=== PATIENT | male | born 1970 | race African-American/Black ===

== ENCOUNTER 2018-11-08 12:59 | Inpatient (IN) | payer OTHER ==
[2018-11-08 13:19] LABS: ADD MAN DIFF? NO
[2018-11-08] MEDS: SODIUM CHLORIDE 0.9% 1L BAG IV* (13:27)
[2018-11-08 13:28] LABS: BASOPHILS % 0.2 % (0.0-2.0); EOSINOPHILS % 0.3 % (0.0-7.0); HEMATOCRIT 31.3 % (42.0-52.0); HEMOGLOBIN 10.1 g/dl (14.0-18.0); LYMPHOCYTES # 1.6 10^3/ul (0.8-2.9); LYMPHOCYTES % 11.6 % (15.0-51.0); MEAN CORPUSCULAR HEMOGLOBIN 26.2 pg (29.0-33.0); MEAN CORPUSCULAR HGB CONC 32.3 g/dl (32.0-37.0); MEAN CORPUSCULAR VOLUME 81.3 fl (82.0-101.0); MEAN PLATELET VOLUME 9.3 fl (7.4-10.4); MONOCYTE # 0.9 10^3/ul (0.3-0.9); MONOCYTES % 6.1 % (0.0-11.0); NEUTROPHIL # 11.3 10^3/ul (1.6-7.5); NEUTROPHILS % 80.7 % (39.0-77.0); PLATELET COUNT 288 10^3/UL (140-415); RED BLOOD COUNT 3.85 10^6/ul (4.70-6.10); RED CELL DISTRIBUTION WIDTH 12.6 % (11.5-14.5)
[2018-11-08] MEDS: PIPER-TAZO 3.375 GM IV (PMX) 100 ML IVPB ×2 (13:34→18:03)
[2018-11-08 13:44] LABS: ALANINE AMINOTRANSFERASE 17 IU/L (13-69); ALBUMIN 3.3 g/dl (3.3-4.9); ALBUMIN/GLOBULIN RATIO 0.84; ALKALINE PHOSPHATASE 129 IU/L (42-121); ANION GAP 9 (5-13); ASPARTATE AMINO TRANSFERASE 18 IU/L (15-46); BILIRUBIN,INDIRECT 0.8 mg/dl (0-1.1); BILIRUBIN,TOTAL 0.8 mg/dl (0.2-1.3); BLOOD UREA NITROGEN 18 mg/dl (7-20); CALCIUM 9.2 mg/dl (8.4-10.2); CARBON DIOXIDE 30 mmol/L (21-31); CHLORIDE 96 mmol/L (97-110); Estimated GFR > 60 mL/min (>60); GLUCOSE 269 mg/dl (70-220); POTASSIUM 4.8 mmol/L (3.5-5.1); SODIUM 135 mmol/L (135-144); TOTAL PROTEIN 7.2 g/dl (6.1-8.1)
[2018-11-08 13:55] LABS: INR 1.07; PT RATIO 1.1
[2018-11-08 13:56] LABS: PARTIAL THROMBOPLASTIN TIME 36.9 Sec (23.0-35.0); TROPONIN-I < 0.012 ng/ml (0.000-0.120)
[2018-11-08] MEDS ORDERED: ONDANSETRON 4 MG INJ IV ×2 (14:00→14:30)
[2018-11-08] MEDS ORDERED: ACETAMINOPHEN 325 MG TAB PO (14:00)
[2018-11-08] MEDS: VANCOMYCIN 1 GM (PMX) 250 ML IVPB (14:17)
[2018-11-08] MEDS ORDERED: HYDROCODONE/APAP (5/325) TAB PO (14:30)
[2018-11-08] MEDS ORDERED: VANCOMYCIN IV PER PHARMACY XX (14:30)
[2018-11-08] MEDS ORDERED: NACL 0.9% 3 ML SYG IV (14:30)
[2018-11-08] MEDS ORDERED: LIDOCAINE 1% (MPF) 30 ML INJ INJ (16:30)
[2018-11-08] MEDS: SOD CHLORIDE 0.9% 1,000 ML IV (18:03)
[2018-11-08] MEDS: INSULIN ASPART [NOVOLOG] 3 ML PEN SC ×3 (18:06→23:00)
[2018-11-08 20:32] LABS: LACTIC ACID 2.3 mmol/L (0.5-2.0)
[2018-11-08 20:47] LABS: C-REACTIVE PROTEIN 21.9 mg/dl (0.0-0.9)
[2018-11-08] MEDS: ACETAMINOPHEN 325 MG TAB PO (20:47)
[2018-11-08] MEDS: VANCOMYCIN 1 GM 250 ML IVPB (20:50)
[2018-11-08 21:06] LABS: ERYTHROCYTE SEDIMENTATION RATE 102 mm/Hr (0-20)
[2018-11-08 21:11] LABS: PROCALCITONIN 0.98 ng/mL (0.00-0.10)
[2018-11-08] MEDS: GABAPENTIN 300 MG CAP PO (22:59)
[2018-11-08] MEDS: INSULIN GLARGINE [LANTus] (100 UNITS/ML) SYG SC (22:59)
[2018-11-09] MEDS: PIPER-TAZO 3.375 GM IV (PMX) 100 ML IVPB ×4 (01:07→17:36)
[2018-11-09] MEDS: ACCU-CHEK XX (02:00)
[2018-11-09 03:10] LABS: LACTIC ACID 1.3 mmol/L (0.5-2.0)
[2018-11-09 05:46] LABS: ADD MAN DIFF? NO
[2018-11-09 05:50] LABS: BASOPHILS % 0.3 % (0.0-2.0); EOSINOPHILS # 0.1 10^3/ul (0.0-0.5); EOSINOPHILS % 0.9 % (0.0-7.0); HEMATOCRIT 28.8 % (42.0-52.0); HEMOGLOBIN 9.3 g/dl (14.0-18.0); LYMPHOCYTES % 17.2 % (15.0-51.0); MEAN CORPUSCULAR HEMOGLOBIN 25.8 pg (29.0-33.0); MEAN CORPUSCULAR HGB CONC 32.3 g/dl (32.0-37.0); MEAN PLATELET VOLUME 9.9 fl (7.4-10.4); NEUTROPHIL # 8.6 10^3/ul (1.6-7.5); NEUTROPHILS % 72.2 % (39.0-77.0); PLATELET COUNT 287 10^3/UL (140-415); RED CELL DISTRIBUTION WIDTH 12.7 % (11.5-14.5)
[2018-11-09 05:50] LABS: WHITE BLOOD COUNT 11.9 10^3/ul (4.8-10.8)
[2018-11-09 06:53] LABS: ALANINE AMINOTRANSFERASE 21 IU/L (13-69); ALBUMIN 3.2 g/dl (3.3-4.9); ALBUMIN/GLOBULIN RATIO 0.84; ALKALINE PHOSPHATASE 145 IU/L (42-121); ANION GAP 9 (5-13); ASPARTATE AMINO TRANSFERASE 33 IU/L (15-46); BILIRUBIN,INDIRECT 0.7 mg/dl (0-1.1); BILIRUBIN,TOTAL 0.7 mg/dl (0.2-1.3); BLOOD UREA NITROGEN 16 mg/dl (7-20); CALCIUM 8.9 mg/dl (8.4-10.2); CARBON DIOXIDE 28 mmol/L (21-31); CHLORIDE 100 mmol/L (97-110); CHOL/HDL RATIO 3.8 RATIO; CHOLESTEROL 107 mg/dl (100-200); CREATININE 1.01 mg/dl (0.61-1.24); Estimated GFR > 60 mL/min (>60); GLUCOSE 184 mg/dl (70-220); HDL CHOLESTEROL 28 mg/dl (28-71); LDL CHOLESTEROL,CALCULATED 61 mg/dl; MAGNESIUM 1.8 mg/dl (1.7-2.5); POTASSIUM 4.7 mmol/L (3.5-5.1); SODIUM 137 mmol/L (135-144); TRIGLYCERIDES 90 mg/dl (0-149)
[2018-11-09 07:25] LABS: HEMOGLOBIN A1C 12.6 % (0-5.9)
[2018-11-09] MEDS: VANCOMYCIN 1 GM 250 ML IVPB ×2 (08:11→21:32)
[2018-11-09] MEDS: ZINC SULFATE 220 MG CAP PO (08:13)
[2018-11-09] MEDS: GABAPENTIN 300 MG CAP PO ×3 (08:13→21:31)
[2018-11-09] MEDS: ASCORBIC ACID 500 MG TAB PO (08:13)
[2018-11-09] MEDS: LISINOPRIL 5 MG TAB PO (08:14)
[2018-11-09] MEDS: SERTRALINE 50 MG TAB PO (08:14)
[2018-11-09] MEDS: COLLAGENASE 5 GM (UD JAR) TOP (08:20)
[2018-11-09] MEDS: ACETAMINOPHEN 325 MG TAB PO ×2 (08:20→17:36)
[2018-11-09] MEDS: INSULIN ASPART [NOVOLOG] 3 ML PEN SC ×7 (08:24→21:00)
[2018-11-09] MEDS ORDERED: GLUCOSE GEL 15 GRAM TUBE BUCCAL (08:30)
[2018-11-09] MEDS ORDERED: GLUCOSE GEL 15 GRAM TUBE PO ×2 (08:30)
[2018-11-09] MEDS ORDERED: DEXTROSE 50% 50 ML SYRINGE IV ×2 (08:30)
[2018-11-09] MEDS ORDERED: GLUCAGON 1 MG INJ IM (08:30)
[2018-11-09 10:39] LABS: C-REACTIVE PROTEIN 24.3 mg/dl (0.0-0.9)
[2018-11-09 10:56] LABS: PROCALCITONIN 1.14 ng/mL (0.00-0.10)
[2018-11-09 11:21] LABS: ERYTHROCYTE SEDIMENTATION RATE 100 mm/Hr (0-20)
[2018-11-09] MEDS: DAKINS 0.0125%(1/40) 473 ML SOLUTION TP (12:28)
[2018-11-09] MEDS: INSULIN GLARGINE [LANTus] (100 UNITS/ML) SYG SC (21:31)
[2018-11-09 22:39] LABS: ADD UMIC YES; UR ASCORBIC ACID NEGATIVE (NEGATIVE); UR BILIRUBIN (Dip) NEGATIVE (NEGATIVE); UR BLOOD (Dip) NEGATIVE (NEGATIVE); UR CLARITY CLEAR (CLEAR); UR COLOR YELLOW (YELLOW); UR GLUCOSE (Dip) 3+ mg/dL (NEGATIVE); UR KETONES (Dip) NEGATIVE (NEGATIVE); UR LEUKOCYTE ESTERASE (Dip) NEGATIVE Leu/ul (NEGATIVE); UR NITRITE (Dip) NEGATIVE (NEGATIVE); UR RBC 7 /HPF (0-5); UR SPECIFIC GRAVITY (Dip) 1.009 (1.003-1.030); UR TOTAL PROTEIN (Dip) 2+ mg/dl (NEGATIVE); UR UROBILINOGEN (Dip) NEGATIVE (NEGATIVE); UR WBC 0 /HPF (0-5)
[2018-11-10] MEDS: PIPER-TAZO 3.375 GM IV (PMX) 100 ML IVPB ×4 (00:28→20:12)
[2018-11-10] MEDS: ACCU-CHEK XX (01:38)
[2018-11-10] MEDS: morphine 2 MG INJ IV ×2 (05:48→22:42)
[2018-11-10] MEDS: INSULIN ASPART [NOVOLOG] 3 ML PEN SC ×7 (08:00→22:36)
[2018-11-10] MEDS: DEXTROSE 5%-0.45% NACL 1,000 ML IV ×2 (08:06→16:30)
[2018-11-10] MEDS: ZINC SULFATE 220 MG CAP PO (08:08)
[2018-11-10] MEDS: SERTRALINE 50 MG TAB PO (08:08)
[2018-11-10] MEDS: GABAPENTIN 300 MG CAP PO ×3 (08:08→22:37)
[2018-11-10] MEDS: ASCORBIC ACID 500 MG TAB PO (08:08)
[2018-11-10] MEDS: LISINOPRIL 5 MG TAB PO (08:11)
[2018-11-10] MEDS: COLLAGENASE 5 GM (UD JAR) TOP (08:12)
[2018-11-10] MEDS: DAKINS 0.0125%(1/40) 473 ML SOLUTION TP (08:12)
[2018-11-10 08:46] LABS: C-REACTIVE PROTEIN 20.6 mg/dl (0.0-0.9)
[2018-11-10] MEDS: VANCOMYCIN 1 GM 250 ML IVPB ×2 (08:58→22:37)
[2018-11-10 09:21] LABS: ERYTHROCYTE SEDIMENTATION RATE 111 mm/Hr (0-20)
[2018-11-10 10:43] LABS: PROCALCITONIN 0.97 ng/mL (0.00-0.10)
[2018-11-10] MEDS ORDERED: HYDROmorphONE 1 MG/5 ML IV SYRINGE IV ×3 (14:00)
[2018-11-10] MEDS ORDERED: PROCHLORPERAZINE 10 MG INJ IV (14:00)
[2018-11-10] MEDS ORDERED: MEPERIDINE 25 MG INJ IV (14:00)
[2018-11-10] MEDS ORDERED: ONDANSETRON 4 MG INJ IV (14:00)
[2018-11-10] MEDS ORDERED: FENTAnyl 50 MCG/ML VIAL IV (14:00)
[2018-11-10] MEDS ORDERED: DIPHENHYDRAMINE 50 MG INJ IV (14:00)
[2018-11-10] MEDS ORDERED: POLYMYXIN/BACITRACIN 1L IRRIG (14:02)
[2018-11-10] MEDS ORDERED: MIDAZOLAM 1 MG/ML 2 ML INJ (14:10)
[2018-11-10] MEDS ORDERED: LIDOCAINE 2% (SDV) 5 ML INJ (14:27)
[2018-11-10] MEDS ORDERED: PROPOFOL 20 ML (14:27)
[2018-11-10] MEDS ORDERED: FENTAnyl 50 MCG/ML VIAL (14:27)
[2018-11-10] MEDS ORDERED: EPHEDrine 25 MG/5 ML SYG (14:28)
[2018-11-10] MEDS ORDERED: FAMOTIDINE 20 MG INJ (14:28)
[2018-11-10] MEDS ORDERED: ONDANSETRON 4 MG INJ (14:29)
[2018-11-10] MEDS: BACITRACIN 50000 UNITS INJ (14:58)
[2018-11-10] MEDS: VANCOMYCIN 1 GM INJ (14:59)
[2018-11-10] MEDS: POLYMYXIN B 500000 UNIT INJ (14:59)
[2018-11-10] MEDS: LIDOCAINE 1% (MPF) 30 ML INJ (15:00)
[2018-11-10] MEDS: INSULIN GLARGINE [LANTus] (100 UNITS/ML) SYG SC (22:36)
[2018-11-11] MEDS: PIPER-TAZO 3.375 GM IV (PMX) 100 ML IVPB ×5 (01:08→23:55)
[2018-11-11] MEDS: INSULIN ASPART [NOVOLOG] 3 ML PEN SC ×9 (01:45→20:35)
[2018-11-11] MEDS: DEXTROSE 5%-0.45% NACL 1,000 ML IV ×4 (02:30→22:30)
[2018-11-11 06:09] LABS: WHITE BLOOD COUNT 11.3 10^3/ul (4.8-10.8)
[2018-11-11 06:09] LABS: HEMATOCRIT 22.5 % (42.0-52.0); HEMOGLOBIN 7.2 g/dl (14.0-18.0); MEAN CORPUSCULAR HEMOGLOBIN 25.8 pg (29.0-33.0); MEAN CORPUSCULAR VOLUME 80.6 fl (82.0-101.0); MEAN PLATELET VOLUME 9.5 fl (7.4-10.4); PLATELET COUNT 289 10^3/UL (140-415); POSITIVE DIFF @See below; RED BLOOD COUNT 2.79 10^6/ul (4.70-6.10); RED CELL DISTRIBUTION WIDTH 12.8 % (11.5-14.5)
[2018-11-11 06:30] LABS: ADD MAN DIFF? YES
[2018-11-11 07:20] LABS: ANION GAP 5 (5-13); BLOOD UREA NITROGEN 11 mg/dl (7-20); CALCIUM 8.2 mg/dl (8.4-10.2); CARBON DIOXIDE 26 mmol/L (21-31); CHLORIDE 107 mmol/L (97-110); CREATININE 1.14 mg/dl (0.61-1.24); Estimated GFR > 60 mL/min (>60); GLUCOSE 166 mg/dl (70-220); MAGNESIUM 1.9 mg/dl (1.7-2.5); PHOSPHORUS 3.3 mg/dl (2.5-4.9); POTASSIUM 4.3 mmol/L (3.5-5.1); SODIUM 138 mmol/L (135-144)
[2018-11-11 07:30] LABS: ERYTHROCYTE SEDIMENTATION RATE 123 mm/Hr (0-20)
[2018-11-11 07:33] LABS: PROCALCITONIN 0.58 ng/mL (0.00-0.10)
[2018-11-11 07:37] LABS: C-REACTIVE PROTEIN 15.7 mg/dl (0.0-0.9)
[2018-11-11] MEDS: morphine 2 MG INJ IV ×2 (07:42→20:51)
[2018-11-11] MEDS: DAKINS 0.0125%(1/40) 473 ML SOLUTION TP (08:12)
[2018-11-11] MEDS: COLLAGENASE 5 GM (UD JAR) TOP (08:12)
[2018-11-11] MEDS: VANCOMYCIN 1 GM 250 ML IVPB ×2 (09:42→20:33)
[2018-11-11] MEDS: ASCORBIC ACID 500 MG TAB PO (09:43)
[2018-11-11] MEDS: LISINOPRIL 5 MG TAB PO (09:43)
[2018-11-11] MEDS: GABAPENTIN 300 MG CAP PO ×3 (09:43→20:34)
[2018-11-11] MEDS: ZINC SULFATE 220 MG CAP PO (09:43)
[2018-11-11] MEDS: SERTRALINE 50 MG TAB PO (09:43)
[2018-11-11 10:01] LABS: ANISOCYTOSIS 1+ (0-0); BAND NEUTROPHILS #M 1.2 10^3/ul (0.0-0.6); BAND NEUTROPHILS % (M) 11 % (0-4); BURR CELLS 2+ (0-0); EOSINOPHILS % (M) 1 % (0-7); GIANT THROMBO% (M) 2 % (0-0); LYMPHOCYTES #M 2.1 10^3/ul (0.8-2.9); LYMPHOCYTES % (M) 19 % (15-51); MONOCYTE #M 0.5 10^3/ul (0.3-0.9); MONOCYTES % (M) 5 % (0-11); OVALOCYTES 1+ (0-0); PLATELET ESTIMATE NORMAL; POIKILOCYTOSIS 3+ (0-0); POLYCHROMASIA 3+ (0-0); SEG NEUT #M 7.4 10^3/ul (1.6-7.5); SEGMENTED NEUTROPHILS (M) % 64 % (39-77); SMUDGE%M 4 % (0-0)
[2018-11-11] MEDS: INSULIN GLARGINE [LANTus] (100 UNITS/ML) SYG SC (20:36)
[2018-11-12] MEDS: INSULIN ASPART [NOVOLOG] 3 ML PEN SC ×9 (01:14→20:36)
[2018-11-12] MEDS: DEXTROSE 5%-0.45% NACL 1,000 ML IV ×2 (03:58→08:21)
[2018-11-12] MEDS: PIPER-TAZO 3.375 GM IV (PMX) 100 ML IVPB ×3 (05:45→17:09)
[2018-11-12 05:58] LABS: ADD MAN DIFF? NO
[2018-11-12 06:31] LABS: BASOPHILS % 0.3 % (0.0-2.0); EOSINOPHILS # 0.3 10^3/ul (0.0-0.5); EOSINOPHILS % 3.2 % (0.0-7.0); HEMATOCRIT 23.7 % (42.0-52.0); HEMOGLOBIN 7.4 g/dl (14.0-18.0); LYMPHOCYTES # 2.7 10^3/ul (0.8-2.9); LYMPHOCYTES % 25.9 % (15.0-51.0); MEAN CORPUSCULAR HEMOGLOBIN 25.5 pg (29.0-33.0); MEAN CORPUSCULAR HGB CONC 31.2 g/dl (32.0-37.0); MEAN CORPUSCULAR VOLUME 81.7 fl (82.0-101.0); MEAN PLATELET VOLUME 9.6 fl (7.4-10.4); MONOCYTE # 0.6 10^3/ul (0.3-0.9); MONOCYTES % 5.8 % (0.0-11.0); NEUTROPHIL # 6.5 10^3/ul (1.6-7.5); NEUTROPHILS % 63.6 % (39.0-77.0); PLATELET COUNT 357 10^3/UL (140-415); RED CELL DISTRIBUTION WIDTH 13.2 % (11.5-14.5)
[2018-11-12 06:31] LABS: WHITE BLOOD COUNT 10.3 10^3/ul (4.8-10.8)
[2018-11-12 06:36] LABS: ANION GAP 6 (5-13); BLOOD UREA NITROGEN 9 mg/dl (7-20); CALCIUM 8.7 mg/dl (8.4-10.2); CARBON DIOXIDE 27 mmol/L (21-31); CHLORIDE 108 mmol/L (97-110); CREATININE 1.22 mg/dl (0.61-1.24); Estimated GFR > 60 mL/min (>60); GLUCOSE 182 mg/dl (70-220); PHOSPHORUS 3.4 mg/dl (2.5-4.9); POTASSIUM 4.6 mmol/L (3.5-5.1); SODIUM 141 mmol/L (135-144)
[2018-11-12] MEDS: ZINC SULFATE 220 MG CAP PO (08:14)
[2018-11-12] MEDS: LISINOPRIL 5 MG TAB PO (08:14)
[2018-11-12] MEDS: GABAPENTIN 300 MG CAP PO ×3 (08:14→20:21)
[2018-11-12] MEDS: SERTRALINE 50 MG TAB PO (08:14)
[2018-11-12] MEDS: ASCORBIC ACID 500 MG TAB PO (08:14)
[2018-11-12] MEDS: VANCOMYCIN 1 GM 250 ML IVPB ×2 (08:20→20:21)
[2018-11-12] MEDS: ACETAMINOPHEN 325 MG TAB PO (08:31)
[2018-11-12] MEDS: COLLAGENASE 5 GM (UD JAR) TOP ×2 (09:00→14:20)
[2018-11-12] MEDS: DAKINS 0.0125%(1/40) 473 ML SOLUTION TP ×2 (09:00→14:20)
[2018-11-12] MEDS: ACCU-CHEK XX ×3 (11:30→21:00)
[2018-11-12 17:53] LABS: PROCALCITONIN 0.35 ng/mL (0.00-0.10)
[2018-11-12 19:18] LABS: ERYTHROCYTE SEDIMENTATION RATE 113 mm/Hr (0-20)
[2018-11-12] MEDS: morphine 2 MG INJ IV (20:21)
[2018-11-12] MEDS: INSULIN GLARGINE [LANTus] (100 UNITS/ML) SYG SC (20:38)
[2018-11-13] MEDS: PIPER-TAZO 3.375 GM IV (PMX) 100 ML IVPB ×3 (00:55→12:45)
[2018-11-13] MEDS: INSULIN ASPART [NOVOLOG] 3 ML PEN SC ×8 (01:05→21:00)
[2018-11-13] MEDS: ACETAMINOPHEN 325 MG TAB PO (01:24)
[2018-11-13] MEDS: morphine 2 MG INJ IV (05:17)
[2018-11-13 05:43] LABS: ADD MAN DIFF? NO; HAAIG REFLEX REFLEX FILED
[2018-11-13 05:46] LABS: WHITE BLOOD COUNT 7.8 10^3/ul (4.8-10.8)
[2018-11-13 05:46] LABS: BASOPHILS % 0.3 % (0.0-2.0); EOSINOPHILS # 0.2 10^3/ul (0.0-0.5); EOSINOPHILS % 2.4 % (0.0-7.0); HEMATOCRIT 24.2 % (42.0-52.0); HEMOGLOBIN 7.6 g/dl (14.0-18.0); LYMPHOCYTES # 1.6 10^3/ul (0.8-2.9); LYMPHOCYTES % 20.2 % (15.0-51.0); MEAN CORPUSCULAR HEMOGLOBIN 25.7 pg (29.0-33.0); MEAN CORPUSCULAR HGB CONC 31.4 g/dl (32.0-37.0); MEAN CORPUSCULAR VOLUME 81.8 fl (82.0-101.0); MEAN PLATELET VOLUME 9.4 fl (7.4-10.4); MONOCYTE # 0.4 10^3/ul (0.3-0.9); NEUTROPHIL # 5.6 10^3/ul (1.6-7.5); NEUTROPHILS % 71.1 % (39.0-77.0); PLATELET COUNT 417 10^3/UL (140-415); RED BLOOD COUNT 2.96 10^6/ul (4.70-6.10); RED CELL DISTRIBUTION WIDTH 13.2 % (11.5-14.5)
[2018-11-13 06:09] LABS: ANION GAP 4 (5-13); BLOOD UREA NITROGEN 11 mg/dl (7-20); CALCIUM 8.7 mg/dl (8.4-10.2); CARBON DIOXIDE 29 mmol/L (21-31); CHLORIDE 107 mmol/L (97-110); CREATININE 1.26 mg/dl (0.61-1.24); Estimated GFR > 60 mL/min (>60); GLUCOSE 99 mg/dl (70-220); MAGNESIUM 1.9 mg/dl (1.7-2.5); PHOSPHORUS 3.3 mg/dl (2.5-4.9); POTASSIUM 4.2 mmol/L (3.5-5.1); SODIUM 140 mmol/L (135-144)
[2018-11-13 06:38] LABS: HEPATITIS B SURFACE ANTIGEN NEGATIVE (NEGATIVE)
[2018-11-13 06:55] LABS: HEPATITIS B CORE ANTIBODY NEGATIVE (NEGATIVE); HEPATITIS C VIRAL ANTIBODY NEGATIVE (NEGATIVE)
[2018-11-13] MEDS: ACCU-CHEK XX ×4 (07:00→21:00)
[2018-11-13] MEDS: VANCOMYCIN 1 GM 250 ML IVPB ×2 (08:21→21:11)
[2018-11-13] MEDS: LISINOPRIL 5 MG TAB PO (08:21)
[2018-11-13] MEDS: GABAPENTIN 300 MG CAP PO ×4 (08:21→21:00)
[2018-11-13] MEDS: ZINC SULFATE 220 MG CAP PO (08:22)
[2018-11-13] MEDS: ASCORBIC ACID 500 MG TAB PO (08:22)
[2018-11-13] MEDS: SERTRALINE 50 MG TAB PO (08:22)
[2018-11-13 08:30] LABS: C-REACTIVE PROTEIN 5.7 mg/dl (0.0-0.9)
[2018-11-13] MEDS: COLLAGENASE 5 GM (UD JAR) TOP (09:00)
[2018-11-13] MEDS: DAKINS 0.0125%(1/40) 473 ML SOLUTION TP (09:00)
[2018-11-13 09:07] LABS: PROCALCITONIN 0.23 ng/mL (0.00-0.10)
[2018-11-13 09:25] LABS: ERYTHROCYTE SEDIMENTATION RATE 93 mm/Hr (0-20)
[2018-11-13] MEDS: AMPICILLIN/SULBAC 3 GM in SOD CHLORIDE 0.9% 100 ML IVPB (17:38)
[2018-11-13] MEDS ORDERED: AMPICILLIN/SULB 3 GM/NS (PMX) 100 ML IVPB (18:00)
[2018-11-13 20:22] LABS: VANCOMYCIN,TROUGH 15.3 ug/ml (10.0-20.0)
[2018-11-13] MEDS: HEPARIN 5,000 UNIT/1 ML VIAL SC (21:05)
[2018-11-13] MEDS: INSULIN GLARGINE [LANTus] (100 UNITS/ML) SYG SC (21:06)
[2018-11-14] MEDS: morphine 2 MG INJ IV (00:08)
[2018-11-14] MEDS: AMPICILLIN/SULBAC 3 GM in SOD CHLORIDE 0.9% 100 ML IVPB ×4 (00:12→17:18)
[2018-11-14] MEDS: ACCU-CHEK XX ×5 (02:00→21:00)
[2018-11-14 05:21] LABS: ADD MAN DIFF? NO
[2018-11-14 05:23] LABS: BASOPHILS % 0.3 % (0.0-2.0); EOSINOPHILS # 0.2 10^3/ul (0.0-0.5); EOSINOPHILS % 2.2 % (0.0-7.0); HEMATOCRIT 23.8 % (42.0-52.0); HEMOGLOBIN 7.5 g/dl (14.0-18.0); LYMPHOCYTES # 1.6 10^3/ul (0.8-2.9); LYMPHOCYTES % 24.2 % (15.0-51.0); MEAN CORPUSCULAR HEMOGLOBIN 25.5 pg (29.0-33.0); MEAN CORPUSCULAR HGB CONC 31.5 g/dl (32.0-37.0); MONOCYTE # 0.5 10^3/ul (0.3-0.9); NEUTROPHIL # 4.4 10^3/ul (1.6-7.5); NEUTROPHILS % 64.4 % (39.0-77.0); PLATELET COUNT 446 10^3/UL (140-415); RED BLOOD COUNT 2.94 10^6/ul (4.70-6.10); RED CELL DISTRIBUTION WIDTH 13.4 % (11.5-14.5)
[2018-11-14 05:23] LABS: WHITE BLOOD COUNT 6.8 10^3/ul (4.8-10.8)
[2018-11-14 06:02] LABS: ALBUMIN 2.5 g/dl (3.3-4.9); ANION GAP 6 (5-13); BLOOD UREA NITROGEN 14 mg/dl (7-20); CALCIUM 8.6 mg/dl (8.4-10.2); CARBON DIOXIDE 26 mmol/L (21-31); CHLORIDE 109 mmol/L (97-110); CREATININE 1.24 mg/dl (0.61-1.24); GLUCOSE 78 mg/dl (70-220); MAGNESIUM 1.8 mg/dl (1.7-2.5); PHOSPHORUS 3.6 mg/dl (2.5-4.9); POTASSIUM 4.7 mmol/L (3.5-5.1); SODIUM 141 mmol/L (135-144)
[2018-11-14] MEDS: INSULIN ASPART [NOVOLOG] 3 ML PEN SC ×7 (08:00→20:41)
[2018-11-14] MEDS: VANCOMYCIN 1 GM 250 ML IVPB ×2 (08:14→20:39)
[2018-11-14] MEDS: LISINOPRIL 5 MG TAB PO (08:15)
[2018-11-14] MEDS: SERTRALINE 50 MG TAB PO (08:15)
[2018-11-14] MEDS: ASCORBIC ACID 500 MG TAB PO (08:15)
[2018-11-14] MEDS: ZINC SULFATE 220 MG CAP PO (08:16)
[2018-11-14] MEDS: GABAPENTIN 300 MG CAP PO ×3 (08:16→20:38)
[2018-11-14] MEDS: HEPARIN 5,000 UNIT/1 ML VIAL SC ×2 (08:26→20:42)
[2018-11-14] MEDS: LIDOCAINE 1% (MPF) 5 ML VIAL SC (12:50)
[2018-11-14] MEDS: DAKINS 0.0125%(1/40) 473 ML SOLUTION TP (12:52)
[2018-11-14] MEDS: COLLAGENASE 5 GM (UD JAR) TOP (12:52)
[2018-11-14] MEDS: HYDROCODONE/APAP (5/325) TAB PO (20:37)
[2018-11-14] MEDS: INSULIN GLARGINE [LANTus] (100 UNITS/ML) SYG SC (20:40)
[2018-11-15] MEDS: AMPICILLIN/SULBAC 3 GM in SOD CHLORIDE 0.9% 100 ML IVPB ×3 (00:18→13:53)
[2018-11-15] MEDS: traMADol 50 MG TAB PO ×2 (01:50→18:41)
[2018-11-15] MEDS: ACCU-CHEK XX ×5 (02:00→21:00)
[2018-11-15 05:15] LABS: ADD MAN DIFF? NO
[2018-11-15 05:19] LABS: WHITE BLOOD COUNT 6.8 10^3/ul (4.8-10.8)
[2018-11-15 05:19] LABS: BASOPHILS % 0.3 % (0.0-2.0); EOSINOPHILS # 0.2 10^3/ul (0.0-0.5); EOSINOPHILS % 2.8 % (0.0-7.0); HEMATOCRIT 23.3 % (42.0-52.0); HEMOGLOBIN 7.3 g/dl (14.0-18.0); LYMPHOCYTES # 2.1 10^3/ul (0.8-2.9); LYMPHOCYTES % 31.2 % (15.0-51.0); MEAN CORPUSCULAR HEMOGLOBIN 25.9 pg (29.0-33.0); MEAN CORPUSCULAR HGB CONC 31.3 g/dl (32.0-37.0); MEAN CORPUSCULAR VOLUME 82.6 fl (82.0-101.0); MEAN PLATELET VOLUME 8.9 fl (7.4-10.4); MONOCYTE # 0.7 10^3/ul (0.3-0.9); MONOCYTES % 10.7 % (0.0-11.0); NEUTROPHIL # 3.7 10^3/ul (1.6-7.5); NEUTROPHILS % 53.8 % (39.0-77.0); PLATELET COUNT 441 10^3/UL (140-415); RED BLOOD COUNT 2.82 10^6/ul (4.70-6.10); RED CELL DISTRIBUTION WIDTH 13.4 % (11.5-14.5)
[2018-11-15 05:40] LABS: ALBUMIN 2.9 g/dl (3.3-4.9); ANION GAP 4 (5-13); BLOOD UREA NITROGEN 19 mg/dl (7-20); CALCIUM 8.9 mg/dl (8.4-10.2); CARBON DIOXIDE 29 mmol/L (21-31); CHLORIDE 107 mmol/L (97-110); CREATININE 1.28 mg/dl (0.61-1.24); GLUCOSE 138 mg/dl (70-220); MAGNESIUM 1.8 mg/dl (1.7-2.5); PHOSPHORUS 3.6 mg/dl (2.5-4.9); POTASSIUM 4.7 mmol/L (3.5-5.1); SODIUM 140 mmol/L (135-144)
[2018-11-15] MEDS: INSULIN ASPART [NOVOLOG] 3 ML PEN SC ×7 (08:00→21:00)
[2018-11-15] MEDS: COLLAGENASE 5 GM (UD JAR) TOP (08:33)
[2018-11-15] MEDS: LISINOPRIL 5 MG TAB PO (08:34)
[2018-11-15] MEDS: DAKINS 0.0125%(1/40) 473 ML SOLUTION TP (08:34)
[2018-11-15] MEDS: VANCOMYCIN 1 GM 250 ML IVPB ×2 (08:36→21:18)
[2018-11-15] MEDS: GABAPENTIN 300 MG CAP PO ×3 (08:36→21:21)
[2018-11-15] MEDS: ZINC SULFATE 220 MG CAP PO (08:36)
[2018-11-15] MEDS: ASCORBIC ACID 500 MG TAB PO (08:36)
[2018-11-15] MEDS: SERTRALINE 50 MG TAB PO (08:36)
[2018-11-15] MEDS: HEPARIN 5,000 UNIT/1 ML VIAL SC ×2 (08:41→21:20)
[2018-11-15 13:21] LABS: C-REACTIVE PROTEIN 3.8 mg/dl (0.0-0.9)
[2018-11-15 16:44] LABS: ERYTHROCYTE SEDIMENTATION RATE 120 mm/Hr (0-20)
[2018-11-15] MEDS: INSULIN GLARGINE [LANTus] (100 UNITS/ML) SYG SC (21:21)
[2018-11-16] MEDS: ACCU-CHEK XX ×5 (02:00→20:27)
[2018-11-16] MEDS: traMADol 50 MG TAB PO ×2 (04:04→11:35)
[2018-11-16 05:35] LABS: ADD MAN DIFF? NO
[2018-11-16 05:42] LABS: WHITE BLOOD COUNT 6.8 10^3/ul (4.8-10.8)
[2018-11-16 05:42] LABS: BASOPHILS % 0.3 % (0.0-2.0); EOSINOPHILS # 0.2 10^3/ul (0.0-0.5); EOSINOPHILS % 2.5 % (0.0-7.0); HEMATOCRIT 22.8 % (42.0-52.0); HEMOGLOBIN 7.1 g/dl (14.0-18.0); LYMPHOCYTES % 29.6 % (15.0-51.0); MEAN CORPUSCULAR HEMOGLOBIN 25.7 pg (29.0-33.0); MEAN CORPUSCULAR HGB CONC 31.1 g/dl (32.0-37.0); MEAN CORPUSCULAR VOLUME 82.6 fl (82.0-101.0); MEAN PLATELET VOLUME 9.1 fl (7.4-10.4); MONOCYTE # 0.5 10^3/ul (0.3-0.9); MONOCYTES % 7.2 % (0.0-11.0); NEUTROPHILS % 59.4 % (39.0-77.0); PLATELET COUNT 497 10^3/UL (140-415); RED BLOOD COUNT 2.76 10^6/ul (4.70-6.10); RED CELL DISTRIBUTION WIDTH 13.7 % (11.5-14.5)
[2018-11-16 06:00] LABS: ALBUMIN 2.6 g/dl (3.3-4.9); ANION GAP 8 (5-13); BLOOD UREA NITROGEN 19 mg/dl (7-20); CALCIUM 8.5 mg/dl (8.4-10.2); CARBON DIOXIDE 25 mmol/L (21-31); CHLORIDE 107 mmol/L (97-110); CREATININE 0.93 mg/dl (0.61-1.24); GLUCOSE 141 mg/dl (70-220); MAGNESIUM 1.8 mg/dl (1.7-2.5); PHOSPHORUS 3.8 mg/dl (2.5-4.9); POTASSIUM 4.2 mmol/L (3.5-5.1); SODIUM 140 mmol/L (135-144)
[2018-11-16] MEDS: INSULIN ASPART [NOVOLOG] 3 ML PEN SC ×7 (08:00→20:27)
[2018-11-16] MEDS: ZINC SULFATE 220 MG CAP PO (08:13)
[2018-11-16] MEDS: GABAPENTIN 300 MG CAP PO ×3 (08:13→20:21)
[2018-11-16] MEDS: SERTRALINE 50 MG TAB PO (08:13)
[2018-11-16] MEDS: ASCORBIC ACID 500 MG TAB PO (08:14)
[2018-11-16] MEDS: LISINOPRIL 10 MG TAB PO (08:14)
[2018-11-16] MEDS: COLLAGENASE 5 GM (UD JAR) TOP (08:15)
[2018-11-16] MEDS: HEPARIN 5,000 UNIT/1 ML VIAL SC ×2 (08:18→20:26)
[2018-11-16] MEDS: VANCOMYCIN 1 GM 250 ML IVPB ×2 (08:32→20:21)
[2018-11-16] MEDS: DAKINS 0.0125%(1/40) 473 ML SOLUTION TP (08:32)
[2018-11-16 09:08] LABS: IRON 30 ug/dl (35-150)
[2018-11-16 09:17] LABS: % IRON SATURATION 14 % SAT (22-52); TOTAL IRON BINDING CAPACITY 215 ug/dl (241-421)
[2018-11-16] MEDS ORDERED: POLYETHYLENE GLYCOL 17 GM PACKET PO (11:30)
[2018-11-16] MEDS: FERROUS SULFATE (EC) 325 MG TAB PO (12:31)
[2018-11-16] MEDS: AMPICILLIN 1 GM/NS (PMX) 50 ML IVPB ×2 (14:11→23:05)
[2018-11-16 17:54] LABS: C-REACTIVE PROTEIN 2.1 mg/dl (0.0-0.9)
[2018-11-16 18:17] LABS: PROCALCITONIN 0.12 ng/mL (0.00-0.10)
[2018-11-16 18:41] LABS: ERYTHROCYTE SEDIMENTATION RATE 105 mm/Hr (0-20)
[2018-11-16] MEDS: INSULIN GLARGINE [LANTus] (100 UNITS/ML) SYG SC (20:26)
[2018-11-17] MEDS: traMADol 50 MG TAB PO ×2 (01:57→09:57)
[2018-11-17] MEDS: ACCU-CHEK XX ×4 (02:00→17:23)
[2018-11-17] MEDS: AMPICILLIN 1 GM/NS (PMX) 50 ML IVPB ×2 (05:04→13:26)
[2018-11-17 05:27] LABS: ADD MAN DIFF? NO
[2018-11-17 05:30] LABS: BASOPHILS % 0.3 % (0.0-2.0); EOSINOPHILS # 0.1 10^3/ul (0.0-0.5); EOSINOPHILS % 1.7 % (0.0-7.0); HEMATOCRIT 27.6 % (42.0-52.0); HEMOGLOBIN 8.6 g/dl (14.0-18.0); LYMPHOCYTES % 28.4 % (15.0-51.0); MEAN CORPUSCULAR HEMOGLOBIN 25.9 pg (29.0-33.0); MEAN CORPUSCULAR HGB CONC 31.2 g/dl (32.0-37.0); MEAN CORPUSCULAR VOLUME 83.1 fl (82.0-101.0); MEAN PLATELET VOLUME 8.8 fl (7.4-10.4); MONOCYTE # 0.5 10^3/ul (0.3-0.9); MONOCYTES % 6.8 % (0.0-11.0); NEUTROPHIL # 4.3 10^3/ul (1.6-7.5); NEUTROPHILS % 62.2 % (39.0-77.0); PLATELET COUNT 483 10^3/UL (140-415); RED BLOOD COUNT 3.32 10^6/ul (4.70-6.10)
[2018-11-17 05:30] LABS: WHITE BLOOD COUNT 6.9 10^3/ul (4.8-10.8)
[2018-11-17 05:53] LABS: ANION GAP 5 (5-13); BLOOD UREA NITROGEN 20 mg/dl (7-20); CALCIUM 8.8 mg/dl (8.4-10.2); CARBON DIOXIDE 27 mmol/L (21-31); CHLORIDE 109 mmol/L (97-110); CREATININE 1.02 mg/dl (0.61-1.24); GLUCOSE 95 mg/dl (70-220); MAGNESIUM 1.8 mg/dl (1.7-2.5); PHOSPHORUS 3.6 mg/dl (2.5-4.9); POTASSIUM 4.3 mmol/L (3.5-5.1); SODIUM 141 mmol/L (135-144)
[2018-11-17] MEDS: INSULIN ASPART [NOVOLOG] 3 ML PEN SC ×6 (08:00→17:29)
[2018-11-17] MEDS: LISINOPRIL 10 MG TAB PO (08:05)
[2018-11-17] MEDS: GABAPENTIN 300 MG CAP PO ×2 (08:05→12:51)
[2018-11-17] MEDS: ZINC SULFATE 220 MG CAP PO (08:05)
[2018-11-17] MEDS: ASCORBIC ACID 500 MG TAB PO (08:05)
[2018-11-17] MEDS: FERROUS SULFATE (EC) 325 MG TAB PO (08:06)
[2018-11-17] MEDS: SERTRALINE 50 MG TAB PO (08:06)
[2018-11-17] MEDS: COLLAGENASE 5 GM (UD JAR) TOP (08:07)
[2018-11-17] MEDS: DAKINS 0.0125%(1/40) 473 ML SOLUTION TP (08:07)
[2018-11-17] MEDS: HEPARIN 5,000 UNIT/1 ML VIAL SC (08:13)
[2018-11-17] MEDS: VANCOMYCIN 1 GM 250 ML IVPB ×2 (09:00→10:04)
[2018-11-17 09:28] LABS: C-REACTIVE PROTEIN 2.3 mg/dl (0.0-0.9)
[2018-11-17 09:40] LABS: VANCOMYCIN,TROUGH 20.2 ug/ml (10.0-20.0)
[2018-11-17 11:28] LABS: PROCALCITONIN 0.14 ng/mL (0.00-0.10)
[2018-11-17] MEDS: HYDROCODONE/APAP (5/325) TAB PO (16:45)
[2018-11-17] MEDS ORDERED: VANCOMYCIN 750 MG (PMX) 250 ML IVPB (23:00)
== END 2018-11-17 20:20 | DRG 853 ==
LOC: E/R 12:59 → 2NE 13:59
PROC: 0QBP0ZZ Excision of Left Metatarsal, Open Approach (ICD-10-PCS; principal; 2018-11-10 14:00)
PROC: 0QBN0ZZ Excision of Right Metatarsal, Open Approach (ICD-10-PCS; 2018-11-10 14:00)
PROC: 0JBQ0ZZ Excision of Right Foot Subcutaneous Tissue and Fascia, Open Approach (ICD-10-PCS; 2018-11-10 14:09)
PROC: 0KBW0ZZ Excision of Left Foot Muscle, Open Approach (ICD-10-PCS; 2018-11-10 14:09)
PROC: 02HV33Z Insertion of Infusion Device into Superior Vena Cava, Percutaneous Approach (ICD-10-PCS; 2018-11-10 14:09)
DX: A41.9 Sepsis, unspecified organism (principal); L89.893 Pressure ulcer of other site, stage 3; M86.172 Other acute osteomyelitis, left ankle and foot; L03.116 Cellulitis of left lower limb; E11.621 Type 2 diabetes mellitus with foot ulcer; E11.40 Type 2 diabetes mellitus with diabetic neuropathy, unspecified; E11.69 Type 2 diabetes mellitus with other specified complication; L97.529 Non-pressure chronic ulcer of other part of left foot with unspecified severity; I10 Essential (primary) hypertension; E78.5 Hyperlipidemia, unspecified; B95.62 Methicillin resistant Staphylococcus aureus infection as the cause of diseases classified elsewhere; B95.0 Streptococcus, group A, as the cause of diseases classified elsewhere; B95.2 Enterococcus as the cause of diseases classified elsewhere; Z79.4 Long term (current) use of insulin; Z79.82 Long term (current) use of aspirin; M48.02 Spinal stenosis, cervical region
CPT/HCPCS: 36415; 36569; 71045; 72141; 73610; 73630; 73630-LT; 73718; 73721; 76937; 80048; 80053; 80061; 80069; 80202; 81001; 82728; 82962; 83036; 83540; 83605; 83735; 84100; 84145; 84443; 84484; 85025; 85610; 85651; 85730; 86140; 86704; 86708; 86709; 86803; 86850; 86900; 86901; 87040-91; 87070; 87075; 87081; 87086; 87102; 87116; 87340; 88304; 88305; 93005; 93922; 93970; 96365; 97110; 97161; 97166; 97530; 99285-25